=== PATIENT | female | born 1965 | race Caucasian/White ===

== ENCOUNTER 2016-12-06 16:00 | Emergency (ER) | payer OTHER ==
[~2016-12-06] VITALS: Ht 170.2 cm; Wt 110.6 kg
[~2016-12-06 16:00] MED LIST: ADVAIR 250-501 EACH IH; AMITRIPTYLINE H10 M1 PO; AMITRIPTYLINE H10 MG PO; BENICAR HCT 201 EACH PO; BENICAR HCT1 TABLET PO; CLONAZEPAM1 MG PO; FIORICET,ESG1 TABLET PO; GABAPENTIN300 MG PO; IBUPROFEN800 MG PO; LEVOTHYROXINE25 MCG PO; METFORMIN HCL500 MG PO; MOBIC15 MG PO; NAPROXEN500 M1 PO; OXECTA5 MG PO; PERCOCET 5-3251 EACH PO; PERCOCET 5/31 TABLET PO; PROTONIX40 MG PO; SIMVASTATIN20 MG PO; TRAMADOL HCL50 MG PO; VICTOZA 2-0.6 MG/0.1 SC; VITAMIN D1000 INTUN PO; XANAX0.5 MG PO
[2016-12-06 16:45] LABS: HEMATOCRIT 44.4 % (36.0-46.0); MCH 29.8 PG (29.0-34.0); MCHC 34.5 G/DL (30.0-36.0); MCV 86.5 FL (83-99); MEAN PLAT.VOLUME 10.8 uM^3 (9.5-12.4); PLATELET COUNT 195 K/uL (156-360); RBC DIS.WIDTH-CV 13.6 % (11.8-14.6); RBC DIS.WIDTH-SD 42.1 % (39-53); RED BLOOD COUNT 5.13 M/uL (3.80-5.20); WHITE BLOOD COUNT 9.2 K/uL (4.1-10.2)
[2016-12-06 16:57] LABS: CHLORIDE 104 mEq/L (99-109); POTASSIUM 3.8 mEq/L (3.7-5.4); SODIUM 139 mEq/L (136-147)
[2016-12-06 16:59] LABS: GLUCOSE 76 mg/dL (70-99)
[2016-12-06 17:00] LABS: ANION GAP 11 MEQ/L (2-14)
[2016-12-06 17:03] LABS: GFR ESTIMATE (CALCULATED) > 59 mL/min/
[2016-12-06 17:04] LABS: UREA NITROGEN (BUN) 9 mg/dL (9-23)
[2016-12-06 17:14] LABS: ADD MIUA? YES; BILIRUBIN NEGATIVE; BLOOD SMALL; COLOR YELLOW ((YELLOW)); GLUCOSE (STRIP) NEGATIVE; KETONES NEGATIVE; LEUKOCYTES SMALL; NITRITE NEGATIVE; PH, URINE 6.5 (5-8); PROTEIN (STRIP) NEGATIVE; SPECIFIC GRAVITY 1.008 (1.000-1.030); UROBILINOGEN 0.2 MG/DL (0.2-1.0)
[2016-12-06 17:27] LABS: BACTERIA RARE /HPF; EPITHELIAL CELLS RARE /HPF; MUCUS TRACE /LPF; RED BLOOD CELLS 0-5 /HPF (0-5); UCUL ADDED? NO; WHITE BLOOD CELLS 20-30 /HPF (0-5)
[2016-12-06] MEDS ORDERED: OXYCODONE HCL10 MG PO (19:12)
[2016-12-06] MEDS ORDERED: XANAX0.5 MG PO (19:13)
[2016-12-06] MEDS ORDERED: LISINOPRIL-HCT1 EAC3 PO (19:16)
[2016-12-06] MEDS ORDERED: ZANTAC150 MG PO (19:17)
[2016-12-06] MEDS ORDERED: FLONASE16 G1 BOTH NARES (19:17)
[2016-12-06] MEDS ORDERED: VITAMIN D31000 UNIT PO (19:18)
[2016-12-06] MEDS ORDERED: ZOFRAN4 MG PO (21:03)
[2016-12-06] MEDS ORDERED: BACTRIM,SEPT1 TABLET PO (21:03)
[2016-12-06 21:44] VITALS: BP 120/58
== END 2016-12-06 21:45 | disposition home or self-care (01) ==
LOC: EME 16:00 → RME 16:00
DX: R10.32 Left lower quadrant pain (principal); N39.0 Urinary tract infection, site not specified; R31.9 Hematuria, unspecified; F17.200 Nicotine dependence, unspecified, uncomplicated; I10 Essential (primary) hypertension; E11.9 Type 2 diabetes mellitus without complications
CPT/HCPCS: 74177; 80048; 81003; 85027; 99281; 99285; J1885; J2405; J3010; J7030